=== PATIENT | female | born 1995 ===

== ENCOUNTER 2017-04-03 17:49 | Emergency (ER) | payer MEDICAID ==
--- NOTE | 2017-04-03 19:12 | ER NURSING DOCUMENTATION ---
Nurse's Notes [facility] Name:Rupali Tanner Age:22 yrs Sex:Female :1995 Arrival Date:04/03/2017 Time:17:49 Bed4 Private MD: Diagnosis:Head Injury Presentation: 04/03 17:51 Acuity: RADHA 3 17:58 Presenting complaint: Patient states: slipped on gravel at 1730 and hit back of head. sj No LOC, no nausea/vomiting. Did not hurt abdomen. 37 weeks ; denies abdominal pain or bleeding. Transition of care: Home. Mechanism of Injury: resulted from a fall, slipped. Notified ED Physician of patient's arrival and CC Dr. Cage notified. 17:58 Acuity: RADHA 4 sj 17:58 Method Of Arrival: Private Vehicle Triage Assessment: 18:03 General: Appears in no apparent distress, Behavior is cooperative, pleasant. Pain: sj Denies pain. Neuro: Level of Consciousness is awake, alert, Oriented to person, place, time, event, Reports no symptoms. Denies weakness blurred vision. Cardiovascular: Capillary refill < 3 seconds. Respiratory: Airway is patent Respiratory effort is even, unlabored, Respiratory pattern is regular, symmetrical. Injury Description: Abrasion sustained to right side of the back of head. Historical: - Allergies: No known drug Allergies; - PMHx: vitamins; iron; 37 3/7 weeks ; - PSHx: None; - Tetanus: > 10 years. - Ebola Screening: : Patient negative for fever greater than or equal to 101.5 degrees Fahrenheit, and additional compatible Ebola Virus Disease symptoms. Patient denies exposure to infectious person. Patient denies travel to an Ebola-affected area in the 21 days before illness onset. No symptoms or risks identified at this time. . - Immunization history: Flu Vaccine None. - Social history: Smoking status: Patient states was never smoker of tobacco. Patient/guardian denies using alcohol, marijuana. Screenin:11 Infectious Disease Risk None. Abuse screen: Denies threats or abuse. Denies injuries sj from another. Nutritional screening: No deficits noted. Assessment: 18:10 See Triage Assessment done by same RN. sj 18:11 Neuro: Pupils are PERRLA. sj 18:30 Reassessment: at 37.3 weeks with c/o falling backward and hitting head. Pt denies ks2 hitting abdomen, denies uterine contractions, loss of amniotic fluid, vaginal bleeding. Pt reports baby is moving. Order for NST from Dr. Cage. Pt on monitor at 1812. FHR baseline 135 bpm with moderate variablity and + accelerations. No contractions on monitor, per palpation and denied by patient. Dr. Mar notified. Karely Sellers RN and Dr Cage notified. . See Triage Assessment done by same RN. 18:42 Reassessment: Dr. Mar notified via secure text of pt's g/p's and gestational ks2 age, complaint, no contractions, loss of fluid, or vaginal bleeding. baby is moving. Baseline FHR 135 with moderate variability and accels present, no decels. NST reactive. Dr. Cage requested that Dr. Mar be notified and give any further orders. . 18:48 Reassessment: Dr. Cage notified of Dr. Mar's response via secure text. Labor ks2 precautions explained to patient, pt verbalized understanding.. Vital Signs: 17:54 BP 131 / 84; Pulse 91; Resp 22; Temp 98.1(O); Pulse Ox 95% on R/A; Weight 95.25 kg (R); arc Height 5 ft. 4 in. (162.56 cm) (R); Pain 0/10; 17:54 Body Mass Index 36.05 (95.25 kg, 162.56 cm) arc Vitals: 18:29 Heart Tones 135. ks2 [place] Coma Score: 17:58 Eye Response: spontaneous(4). Verbal Response: oriented(5). Motor Response: obeys sj commands(6). Total: 15. 18:04 Eye Response: spontaneous(4). Verbal Response: oriented(5). Motor Response: obeys sc commands(6). Total: 15. 18:06 Eye Response: spontaneous(4). Verbal Response: oriented(5). Motor Response: obeys sc commands(6). Total: 15. Trauma Score (Adult): 18:10 Eye Response: spontaneous(1); Verbal Response: oriented(1); Motor Response: obeys sj commands(2); Systolic BP: > 89 mm Hg(4); Respiratory Rate: 10 to 29 per min(4); Carleen Score: 15; Trauma Score: 12 ED Course: 17:50 Patient arrived in ED. jt 17:51 Triage completed. 17:55 Tho Cage MD is Attending Physician. ny 17:58 Desirae Sellers is Primary Nurse. 18:07 Gary Mar MD is Admitting Physician. sc 18:11 Valuables Remains with patient Patient has correct armband on for positive sj identification. Bed in low position. Call light in reach. Administered Medications: No medications were administered Outcome: 18:08 Decision to Admit by Provider. ny 19:03 Discharged to home ambulatory, with family. sj 19:03 Condition: good 19:03 Instructed on discharge instructions, follow up and referral plans. Demonstrated understanding of instructions. 19:09 Discharge ordered by . ny 19:12 Patient left the ED. Signatures: Tho Cage MD MD sc Shilts, Karlye ks2 Malou Cage, Kalani Light Umu Resendiz Sarah
--- NOTE | 2017-04-03 19:12 | ER PHYSICIAN DOCUMENTATION ---
Physician Documentation [facility] Name:Rupali Tanner Age:22 yrs Sex:Female :1995 Arrival Date:04/03/2017 Time:17:49 Bed4 Private MD: Tho Langley Disposition: 04/03/17 19:09 Discharged to Home/Self Care. Impression: Head Injury. - Condition is Good. - Discharge Instructions: HEAD INJURY, No Wake-Up (Adult). - Medical Reconciliation form form. - Follow up: Private Physician; When: 1 - 2 days; Reason: Recheck today's complaints, Continuance of care. - Problem is new. - Symptoms are resolved. HPI: 04/03 18:04 This 22 yrs old Unknown Female presents to ER via Private Vehicle with complaints of sc Head Injury Without LOC-Adult. 18:04 The patient or guardian reports swelling. The complaints affect the right side of the sc back of head. Context of injury: The problem was sustained outdoors, resulted from a fall. Onset: The symptom(s)/episode began/occurred just prior to arrival. Associated signs and symptoms: The patient has no apparent associated signs or symptoms, Loss of consciousness: This patient did not experience any loss of consciousness. Historical: - Allergies: No known drug Allergies; - PMHx: vitamins; iron; 37 3/7 weeks ; - PSHx: None; - Tetanus: > 10 years. - Ebola Screening: : Patient negative for fever greater than or equal to 101.5 degrees Fahrenheit, and additional compatible Ebola Virus Disease symptoms. Patient denies exposure to infectious person. Patient denies travel to an Ebola-affected area in the 21 days before illness onset. No symptoms or risks identified at this time. . - Immunization history: Flu Vaccine None. - Social history: Smoking status: Patient states was never smoker of tobacco. Patient/guardian denies using alcohol, marijuana. ROS: 18:05 Constitutional: Negative for fever, chills, and weight loss. sc Neck: Negative for injury, pain, and swelling. Cardiovascular: Negative for chest pain, palpitations, and edema. Respiratory: Negative for shortness of breath, cough, wheezing, and pleuritic chest pain. Abdomen/GI: Negative for abdominal pain, nausea, vomiting, diarrhea, and constipation. Back: Negative for injury and pain. MS/Extremity: Negative for injury and deformity. Skin: Negative for injury, rash, and discoloration. 18:05 Neuro: Negative for headache, weakness, numbness, tingling, and seizure. sc 18:05 Eyes: Negative for injury or acute deformity, blurry vision. 18:05 ENT: Negative for injury or acute deformity. 18:05 : Negative for injury or acute deformity. Exam: Constitutional: This is a well developed, well nourished patient who is awake, alert, and in no acute distress. Eyes: Pupils equal round and reactive to light, extra-ocular motions intact. Lids and lashes normal. Conjunctiva and sclera are non-icteric and not injected. Cornea within normal limits. Periorbital areas with no swelling, redness, or edema. Neck: Trachea midline, no thyromegaly or masses palpated, and no cervical lymphadenopathy. Supple, full range of motion without nuchal rigidity, or vertebral point tenderness. No meningismus. Chest/axilla: Normal chest wall appearance and motion. Nontender with no deformity. No lesions are appreciated. Cardiovascular: Regular rate and rhythm with a normal S1 and S2. No gallops, murmurs, or rubs. Normal PMI, no JVD. No pulse deficits. Respiratory: Lungs have equal breath sounds bilaterally, clear to auscultation and percussion. No rales, rhonchi or wheezes noted. No increased work of breathing, no retractions or nasal flaring. Abdomen/GI: Soft, non-tender, with normal bowel sounds. No distension or tympany. No guarding or rebound. No evidence of tenderness throughout. Back: No spinal tenderness. No costovertebral tenderness. Full range of motion. MS/ Extremity: Pulses equal, no cyanosis. Neurovascular intact. Full, normal range of motion, negative Homans's, calves equal bilaterally. 18:05 Neuro: Awake and alert, GCS 15, oriented to person, place, time, and situation. sc Cranial nerves II-XII grossly intact. Motor strength 5/5 in all extremities. Sensory grossly intact. Cerebellar exam normal. Normal gait. 18:05 Head/face: Noted is hematoma, that is mild, of the right side of the back of head, Basilar skull fracture findings: the patient does not have obvious signs of a basilar skull fracture. 18:05 Eyes: Pupils: equal, round, and reactive to light and accomodation. 18:05 ENT: TM's: hemotympanum, is not appreciated. 18:05 Neck: C-spine: Nexus Criteria: Nexus criteria: no cervical midline tenderness, patient is not intoxicated, mental status is normal, no focal/neurologic deficits, and no painful distracting injuries are present. 18:26 Neuro: Orientation: is normal, Mentation: is normal. wv Vital Signs: 17:54 BP 131 / 84; Pulse 91; Resp 22; Temp 98.1(O); Pulse Ox 95% on R/A; Weight 95.25 kg (R); arc Height 5 ft. 4 in. (162.56 cm) (R); Pain 0/10; 17:54 Body Mass Index 36.05 (95.25 kg, 162.56 cm) arc [place] Coma Score: 17:58 Eye Response: spontaneous(4). Verbal Response: oriented(5). Motor Response: obeys sj commands(6). Total: 15. 18:04 Eye Response: spontaneous(4). Verbal Response: oriented(5). Motor Response: obeys sc commands(6). Total: 15. 18:06 Eye Response: spontaneous(4). Verbal Response: oriented(5). Motor Response: obeys sc commands(6). Total: 15. Trauma Score (Adult): 18:10 Eye Response: spontaneous(1); Verbal Response: oriented(1); Motor Response: obeys sj commands(2); Systolic BP: > 89 mm Hg(4); Respiratory Rate: 10 to 29 per min(4); [place] Score: 15; Trauma Score: 12 MDM: 17:55 Patient medically screened. wv 18:06 Differential diagnosis: Hematoma on Intracranial bleed- Concussion cerebral contusion. wv Data reviewed: vital signs, nurses notes, and as a result, I will initiate a consult, from a custodial operations manager for 37 week female for post trauma observation, moved from ER. Physician consultation: Gary Mar MD was called at 18:07, was contacted at 18:07. Dispensed Medications: No medications were administered Signatures: Tho Cage MD MD wv Kalani Pop Sarah sj
== END 2017-04-03 19:12 | disposition home or self-care (01) ==
LOC: ER 17:49
DX: O99.89 Other specified diseases and conditions complicating pregnancy, childbirth and the puerperium (principal); S00.03XA Contusion of scalp, initial encounter; W01.0XXA Fall on same level from slipping, tripping and stumbling without subsequent striking against object, initial encounter; Y92.89 Other specified places as the place of occurrence of the external cause; Y93.01 Activity, walking, marching and hiking
CPT/HCPCS: 99283